=== PATIENT | male | born 1985 | race Caucasian/White ===

== ENCOUNTER 2016-06-09 13:16 | Emergency (ER) | payer MEDICAID ==
--- NOTE | ~2016-06-09 | CR133 ---
[facility] A Service of [facility] RADIOLOGY TEXT RESULTS PATIENT: AUSTIN CASTANEDA LOCATION: BUTCH : 84 UNIT #: [id number] AGE: [address]: Dario Zepeda MD SEX: M ORDER DR: [id number] [facility]. [place], [place] [address] [id number] MR#: [id number] Acc #: [id number] NAME: AUSTIN CASTANEDA : 1985 SEX: M STUDY DATE/TIME: 06/09/2016 13:09 UNIT: BUTCH ROOM: STUDY DESCRIPTION: CR Forearm 2 View Rt Attending Physician: Dario Zepeda M.D. Ordering Physician: Dario Zepeda M.D. Primary Care Physician: Della Man M.D. MEDICAL IMAGING REPORT This report is preliminary unless electronic signature is present EXAM Right forearm. DATE OF EXAM 06/09/2016 HISTORY 30-year-old male with history of IV drug abuse presenting with right arm pain and apparent soft tissue abscess near the elbow. TECHNIQUE 2 view right forearm series. FINDINGS Exam shows focal soft tissue swelling along the anterior aspect of the proximal forearm near the elbow. No visible soft tissue gas or radiopaque soft tissue foreign body. No acute or chronic osseous abnormality. IMPRESSION Soft tissue swelling of the proximal anterior forearm. Right forearm series otherwise negative. Dictated by... Dandre Hansen M.D. THIS IS AN ELECTRONICALLY VERIFIED REPORT Dandre Hansen M.D. at 06/10/2016 5:55 AM DIOGO/jeffrey TD: 06/09/2016 15:33 [facility] A Service of [facility] RADIOLOGY TEXT RESULTS PATIENT: AUSTIN CASTANEDA LOCATION: [facility] : 84 UNIT #: [id number] AGE: [address]: Dario Zepeda MD SEX: M ORDER DR: JOB #: [id number] MEDICAL IMAGING REPORT COPY
[~2016-06-09 13:16] MED LIST: HEROIN IVP
== END 2016-06-09 16:23 | disposition home or self-care (01) ==
LOC: CED 13:16
DX: F19.10 Other psychoactive substance abuse, uncomplicated (principal); L02.413 Cutaneous abscess of right upper limb; F17.210 Nicotine dependence, cigarettes, uncomplicated
CPT/HCPCS: 10060; 73090; 99283

== ENCOUNTER 2016-10-07 18:42 | Emergency (ER) | payer MEDICAID ==
[2016-10-07 19:23] LABS: BASOPHIL% 0.5 % (0-2.5); EOSINOPHIL% 0.3 % (0.0-7.0); HEMATOCRIT 43.6 % (38.0-50.0); HEMOGLOBIN 14.4 gm/dL (13.0-16.0); LYMPHOCYTE# 2.1 X10e3 (1.0-3.5); LYMPHOCYTE% 27.4 % (17.0-45.0); MEAN CELL VOLUME 84.8 FL (83-96); MEAN CORPUSCULAR HEMOGLOBIN 28.1 PG (28-34); MEAN CORPUSCULAR HGB CONC 33.1 g/dL (30-36); MEAN PLATELET VOLUME 8.8 FL (6.5-11.5); MONOCYTE# 0.7 X10e3 (0-1.0); MONOCYTE% 8.4 % (3.0-12.0); NEUTROPHIL# 4.9 X10e3 (1.5-7.1); NEUTROPHIL% 63.4 % (40-75); PLATELET COUNT 216 X10e3 (140-420); RED BLOOD COUNT 5.14 X10e (3.90-5.60); WHITE BLOOD COUNT 7.7 X10e3 (4.0-10.5)
[2016-10-07 19:25] LABS: DIFF IND NO
[2016-10-07 19:46] LABS: ALBUMIN SERUM 4.6 g/dL (3.5-5.0); BILIRUBIN, DIRECT 0.1 mg/dL (0.0-0.2); BILIRUBIN,INDIRECT 0.5 mg/dL (0.0-0.9); BILIRUBIN,TOTAL 0.6 mg/dL (0.2-2.0); CALCIUM SERUM 9.4 mg/dL (8.4-10.2); CREATININE SERUM 1.1 mg/dL (0.6-1.4); GLOM FILT RATE Estimated 88.4 mL/min (>60); POTASSIUM 3.5 mmol/L (3.5-5.1); PROTEIN TOTAL SERUM 8.4 g/dL (6.0-8.3)
== END 2016-10-07 21:04 | disposition home or self-care (01) ==
LOC: CED 18:42
PROVIDERS: Emergency Medicine
DX: G40.509 Epileptic seizures related to external causes, not intractable, without status epilepticus (principal); F15.10 Other stimulant abuse, uncomplicated; F17.200 Nicotine dependence, unspecified, uncomplicated; Z88.1 Allergy status to other antibiotic agents
CPT/HCPCS: 36415; 80048; 80076; 82550; 82947; 85025; 96360; 99284

== ENCOUNTER 2016-11-13 11:05 | Inpatient (IN) | payer MEDICAID ==
[~2016-11-13] VITALS: Ht 190.5 cm; Wt 90.4 kg
--- NOTE | ~2016-11-13 | DS ---
Unit #: [id number] #: [id number] Patient: AUSTIN CASTANEDA [id number] [address] [place], [place] [address] [id number] I MR#: [id number] NAME: AUSTIN CASTANEDA ROOM: 316 Age: 31 Sex: M Admission Date: 11/13/2016 : 1985 Discharge Date: Attending Physician: Austyn Andujar M.D. Primary Care Physician: No Primary Care Physician DISCHARGE SUMMARY REASON FOR ADMISSION Overdose. HISTORY OF PRESENT ILLNESS/HOSPITAL COURSE The patient is a 31-year-old male with underlying history of polysubstance abuse, who presented secondary to overdose. Please see history and physical for complete details. Apparently he was using heroin as well as methamphetamines at home. Initially he was noted to be acutely hypoxic. Right lower lobe infiltrate was noted on initial chest x-ray, likely aspiration. He was given Narcan in the emergency room and placed on Zosyn. He was subsequently admitted and placed on telemetry floor. Initial urine tox screen positive for opiates as well as amphetamines. He underwent routine laboratory studies as well as blood cultures, which have been negative at 24 hours. His HIV screen was negative. Chest x-ray did reveal findings as detailed above. At the present time he is alert and oriented times three. He is currently breathing on room air with no difficulty. He adamantly denies any suicidal ideations. He was offered opioid help in regard to addiction at [facility], which he refused. He said that he would be able to stop heroin on his own and did not require the help of anyone at the present time. He will be discharged home to the care of his mother. He states that he will stay with his mother for the next several days. FINAL DISCHARGE DIAGNOSES 1. Heroin overdose. 2. Likely aspiration pneumonia. 3. Acute hypoxic respiratory failure on admission, now resolved. 4. Heroin/methamphetamine abuse. 5. Tobacco abuse. 6. Poor insight into disease process. FINAL DISCHARGE MEDICATIONS 1. Augmentin 875 mg p.o. b.i.d. times 7 days. 2. Multivitamin daily. DISCHARGE CONDITION Stable. DISPOSITION Home. Unit #: [id number] #: [id number] Patient: AUSTIN CASTANEDA LONG-TERM PROGNOSIS Poor. Chance of readmission of this patient elevated. This patient lacks insight into his disease process. His life expectancy is likely less than six months. Dictated by... Karen Rivera/yanira TD: 11/15/2016 09:48 JOB #: [id number] DISCHARGE SUMMARY Page 1 of 1 X Austyn Andujar MD X DISCHARGE SUMMARY
--- NOTE | ~2016-11-13 | HP ---
Unit #: [id number] #: [id number] Patient: AUSTIN CASTANEDA [id number] [address] [address] [id number] I MR#: [id number] NAME: AUSTIN CASTANEDA ROOM: 316 Age: 31 Sex: M Admission Date: 11/13/2016 : 1985 Attending Physician: Shira Pink M.D. HISTORY AND PHYSICAL CHIEF COMPLAINT Overdose. HISTORY OF PRESENT ILLNESS The patient is a 31-year-old male with a past medical history of polysubstance abuse who presented to the emergency department for evaluation of the above. The history is obtained from chart review and discussion with ER staff, as well as from the patient. He is currently a poor historian. Apparently, the patient was using heroin, as well as possibly methamphetamine. He denied any suicidal or homicidal ideations. During the course of his evaluation in the emergency department, oxygen saturation dropped to 85% on six liters. He was placed on a nonrebreather. Chest x-ray shows a possible right upper lobe infiltrate. He was given Zosyn in the emergency department, as well as 2 mg of Narcan. He is being admitted to [facility] for evaluation and further treatment. PAST MEDICAL HISTORY Polysubstance abuse including methamphetamine and heroin. PAST SURGICAL HISTORY None. SOCIAL HISTORY The patient is a smoker. He uses methamphetamine and heroin. FAMILY HISTORY Noncontributory. ALLERGIES Erythromycin. HOME MEDICATIONS None. REVIEW OF SYSTEMS A complete review of systems is negative except as indicated in the History of Present Illness. PHYSICAL EXAMINATION VITAL SIGNS: Temperature is 98.7, pulse 93, respirations 16, blood pressure 122/84, and oxygen saturation 93% on room air. However, oxygen saturation did drop to 85% on 6 liters. The patient was placed on a Unit #: [id number] #: [id number] Patient: AUSTIN CASTANEDA nonrebreather. He is currently saturating 97% on room air. GENERAL: Patient is a male who is sleeping but wakes to physical stimuli. HEENT: Head is atraumatic. Mucous membranes are dry. NECK: Supple. Trachea is midline. CARDIOVASCULAR: Regular rate and rhythm. LUNGS: Clear to auscultation bilaterally with no increased work of breathing. ABDOMEN: Soft and nontender with bowel sounds present in all four quadrants. EXTREMITIES: Nontender with no pedal edema. NEUROLOGIC: Patient is sleeping but wakes to voice. He is oriented x3. He follows commands. PSYCHIATRIC: Patient demonstrates poor insight and judgment. SKIN: Scattered tattoos. DIAGNOSTIC STUDIES LABORATORY: Comprehensive metabolic panel notable for BUN and creatinine of 25 and 1, respectively, and AST and ALT are 43 and 44, respectively. Tylenol, salicylate, and alcohol levels are negative. BNP is 5. Complete blood count is essentially normal. IMAGING: Chest x-ray shows possible early right upper lobe infiltrate. ASSESSMENT The patient is a 31-year-old male with: 1. Acute respiratory failure, hypoxic. 2. Pneumonia concerning for possible aspiration. The patient received Zosyn in the emergency department. 3. Heroin overdose, accidental. 4. Transaminitis. 5. Tobacco abuse. PLAN 1. Admit to intermediate level. 2. Regular diet when awake and passes bedside swallow. 3. Normal saline at 125 mL/hour. 4. Supplemental oxygen for saturations greater than 92%. 5. P.r.n. DuoNebs. 6. Blood cultures x2. 7. Sputum culture and sensitivity. 8. Zosyn 3.375 grams IV q.6 hours for possible aspiration pneumonia. 9. Check procalcitonin level. 10. Repeat chest x-ray in the a.m. 11. Neuro checks. 12. Urinalysis with culture and sensitivity. 13. Urine toxicology screen. 14. HIV and hepatitis panel. 15. business unit manager/social work consult regarding IV drug use. 16. Repeat labs in the morning. 17. SCDs for DVT prophylaxis. 18. Additional workup and consultants based on above. 1. Dictated by Shira Pink M.D. AW/am Unit #: [id number] #: [id number] Patient: AUSTIN CASTANEDA TD: 11/13/2016 17:10 JOB #: [id number] HISTORY AND PHYSICAL Page 1 of 1 X Shira Pink MD X HISTORY AND PHYSICAL
--- NOTE | ~2016-11-13 | CR72 ---
[facility] A Service of [facility] RADIOLOGY TEXT RESULTS PATIENT: AUSTIN CASTANEDA LOCATION: [facility]ED[facility] : 84 UNIT #: [id number] AGE: [address]: Sihra Pink MD SEX: M ORDER DR: [id number] [facility] [address] [facility]. [place], [place] [address] [id number] E MR#: [id number] Acc #: [id number] NAME: AUSTIN CASTANEDA : 1985 SEX: M STUDY DATE/TIME: 11/13/2016 11:40 UNIT: BUTCH ROOM: STUDY DESCRIPTION: CR Chest Single View Portable Attending Physician: Mike Barreto D.O. Ordering Physician: Mike Barreto D.O. Primary Care Physician: No Primary Care Physician MEDICAL IMAGING REPORT This report is preliminary unless electronic signature is present EXAM Portable chest, 11/13/2016, 1140 hours, [facility]. HISTORY 31-year-old male, heroin overdose, short of air. Symptoms began today. Short of breath. COMPARISON Chest none. FINDINGS AP portable chest demonstrates normal cardiac size and configuration. Hilar structures are preserved. Faint density projects over the right upper lobe. Early lobar edema is not excluded. Lungs appear otherwise clear. Costophrenic angles are preserved. Short-interval followup recommended. IMPRESSION Early or low-grade lumbar edema right upper lobe suspect. Recommend short-interval followup. Dictated by... Josafat Emery M.D. THIS IS AN ELECTRONICALLY VERIFIED REPORT Josafat Emery M.D. at 11/13/2016 3:40 PM RAKAN/hetal TD: 11/13/2016 14:44 JOB #: [id number] [facility] A Service of [facility] RADIOLOGY TEXT RESULTS PATIENT: AUSTIN CASTANEDA LOCATION: CEDOF : 84 UNIT #: [id number] AGE: [address]: Shira Pink MD SEX: M ORDER DR: MEDICAL IMAGING REPORT Page 1 of 1 COPY
--- NOTE | ~2016-11-13 | CR63 ---
[facility] A Service of [facility] RADIOLOGY TEXT RESULTS PATIENT: AUSTIN CASTANEDA LOCATION: A 316-01 : [birth year] UNIT #: [id number] AGE: [address]: Luis Angel Rayo MD SEX: M ORDER DR: [id number] [facility] [address] [facility]. [place], [place] [address] [id number] I MR#: [id number] Acc #: [id number] NAME: AUSTIN CASTANEDA : 1985 SEX: M STUDY DATE/TIME: 11/14/2016 12:25 UNIT: A U ROOM: [facility] STUDY DESCRIPTION: CR Chest 2 View Attending Physician: Luis Angel Rayo M.D. Ordering Physician: Shira Pink M.D. MEDICAL IMAGING REPORT This report is preliminary unless electronic signature is present EXAM Chest x-ray 11/14 INDICATIONS Shortness of air for 1 day. Heroin overdose. TECHNIQUE PA and views of the chest. COMPARISON STUDIES 11/13/2016. FINDINGS Cardiac and mediastinal contours are normal. There is right lower lobe atelectasis or infiltrate. Lungs otherwise clear. No pneumothorax. IMPRESSION Right lower lobe atelectasis or infiltrate. Otherwise, negative. Dictated by... Robert Guzman Jr., M.D. THIS IS AN ELECTRONICALLY VERIFIED REPORT Robert Guzman Jr., M.D. at 11/15/2016 7:16 AM RLK/galindo TD: 11/14/2016 17:12 JOB #: [id number] MEDICAL IMAGING REPORT Page 1 of 1 COPY
[2016-11-13 12:45] LABS: ALKALINE PHOSPHATASE 50 U/L (32-92); ALT (SGPT) 44 U/L (10-40); AST (SGOT) 43 U/L (10-42); BILIRUBIN, DIRECT 0.1 mg/dL (0.0-0.2); BILIRUBIN,INDIRECT 0.2 mg/dL (0.0-0.9); BILIRUBIN,TOTAL 0.3 mg/dL (0.2-2.0); BLOOD UREA NITROGEN 25 mg/dL (9-23); CALCIUM SERUM 8.9 mg/dL (8.4-10.2); CARBON DIOXIDE 29 mmol/L (22-31); CHLORIDE 106 mmol/L (100-111); GLOM FILT RATE Estimated 99.2 mL/min (>60); GLUCOSE FASTING 93 mg/dL (70-110); POTASSIUM 3.6 mmol/L (3.5-5.1); PROTEIN TOTAL SERUM 7.4 g/dL (6.0-8.3); SALICYLATE <4.0 mg/dL; SODIUM 141 mmol/L (135-145)
[2016-11-13 12:46] LABS: ACETAMINOPHEN <10 ug/mL; ALCOHOL BLOOD <5 mg/dL (0)
[2016-11-13 13:40] LABS: BASOPHIL% 0.2 % (0-2.5); EOSINOPHIL# 0.1 X10e3 (0-0.7); EOSINOPHIL% 1.2 % (0.0-7.0); HEMATOCRIT 43.8 % (38.0-50.0); LYMPHOCYTE# 0.8 X10e3 (1.0-3.5); LYMPHOCYTE% 12.2 % (17.0-45.0); MEAN CELL VOLUME 84.6 FL (83-96); MEAN CORPUSCULAR HEMOGLOBIN 28.9 PG (28-34); MEAN CORPUSCULAR HGB CONC 34.2 g/dL (30-36); MEAN PLATELET VOLUME 8.3 FL (6.5-11.5); MONOCYTE# 0.2 X10e3 (0-1.0); MONOCYTE% 2.6 % (3.0-12.0); NEUTROPHIL# 5.4 X10e3 (1.5-7.1); NEUTROPHIL% 83.8 % (40-75); PLATELET COUNT 229 X10e3 (140-420); RED BLOOD COUNT 5.18 X10e (3.90-5.60); RED CELL DISTRIBUTION WIDTH 14.3 % (11.0-15.5); WHITE BLOOD COUNT 6.5 X10e3 (4.0-10.5)
[2016-11-13 13:48] LABS: DIFF IND NO
[2016-11-13] MEDS ORDERED: NO MEDICATIONS (14:53)
[2016-11-13 23:01] LABS: AMPHETAMINE POS (NEG); BARBITURATES NEG (NEG); BENZODIAZEPINES NEG (NEG); COCAINE NEG (NEG); MARIJUANA NEG (NEG); OPIATES POS (NEG); TRICYCLIC ANTIDEPRESSANTS NEG (NEG); U METHADONE NEG (NEG)
[2016-11-13 23:22] LABS: URINE APPEARANCE CLEAR; URINE BILIRUBIN NEG (NEG); URINE BLOOD NEG (NEG); URINE COLOR YELLOW; URINE GLUCOSE NEG (NEG); URINE KETONE NEG (NEG); URINE LEUKOCYTE ESTERASE NEG (NEG); URINE NITRATE NEG (NEG); URINE PROTEIN TRACE (NEG); URINE SPECIFIC GRAVITY 1.031 (1.003-1.035); URINE UROBILINOGEN 0.2 MG/DL (NEG)
[2016-11-13 23:29] LABS: CULTURE INDICATED? NO
[2016-11-14 05:27] LABS: MEAN CELL VOLUME 84.5 FL (83-96); MEAN CORPUSCULAR HEMOGLOBIN 28.3 PG (28-34); MEAN CORPUSCULAR HGB CONC 33.5 g/dL (30-36); MEAN PLATELET VOLUME 8.8 FL (6.5-11.5); RED BLOOD COUNT 4.61 X10e (3.90-5.60); RED CELL DISTRIBUTION WIDTH 14.2 % (11.0-15.5)
[2016-11-14 05:28] LABS: WHITE BLOOD COUNT 15.4 X10e3 (4.0-10.5)
[2016-11-14 06:21] LABS: ALBUMIN SERUM 3.1 g/dL (3.5-5.0); BILIRUBIN,TOTAL 0.4 mg/dL (0.2-2.0); BUN/CREATININE RATIO 21.11; CALCIUM SERUM 8.3 mg/dL (8.4-10.2); CREATININE SERUM 0.9 mg/dL (0.6-1.4); GLOM FILT RATE Estimated 112.6 mL/min (>60); POTASSIUM 3.8 mmol/L (3.5-5.1); PROTEIN TOTAL SERUM 6.2 g/dL (6.0-8.3)
[2016-11-14 16:13] LABS: HEMATOCRIT 37.3 % (38.0-50.0); HEMOGLOBIN 12.7 gm/dL (13.0-16.0); MEAN CORPUSCULAR HEMOGLOBIN 28.6 PG (28-34); MEAN CORPUSCULAR HGB CONC 34.1 g/dL (30-36); RED BLOOD COUNT 4.44 X10e (3.90-5.60); RED CELL DISTRIBUTION WIDTH 14.6 % (11.0-15.5); WHITE BLOOD COUNT 11.6 X10e3 (4.0-10.5)
[2016-11-15] MEDS ORDERED: MULTI VITAMIN1 EACH PO (11:09)
[2016-11-15] MEDS ORDERED: AUGMENTIN PO (11:10)
[2016-11-19 17:30] LABS: HA AB IGM (HEPPAN) Nonreactive (()); HB CORE AB IGM (HEPPAN) Nonreactive (Nonreactive); HB S AG (HEPPAN) Nonreactive (Nonreactive); HEP C AB (HEPPAN) Reactive (Nonreactive)
== END 2016-11-15 13:09 | disposition home or self-care (01) | DRG 917 ==
LOC: CED 11:05 → CEDOF 14:50 → CED 15:02 → C3A PCU 15:56 → CEDOF 15:56 → C3A PCU 15:56
PROVIDERS: Emergency Medicine; Family Medicine; Internal Medicine
PROC: 02HV33Z Insertion of Infusion Device into Superior Vena Cava, Percutaneous Approach (ICD-10-PCS; principal; 2016-11-14)
PROC: 4A02X4A Measurement of Cardiac Electrical Activity, Guidance, External Approach (ICD-10-PCS; 2016-11-14)
DX: T40.1X1A Poisoning by heroin, accidental (unintentional), initial encounter (principal); J96.01 Acute respiratory failure with hypoxia; J69.0 Pneumonitis due to inhalation of food and vomit; A41.9 Sepsis, unspecified organism; F11.23 Opioid dependence with withdrawal; F15.10 Other stimulant abuse, uncomplicated; F17.210 Nicotine dependence, cigarettes, uncomplicated; R74.0 Nonspecific elevation of levels of transaminase and lactic acid dehydrogenase [LDH]
CPT/HCPCS: 36415; 71010; 71020; 80048; 80053; 80074; 80076; 80307; 81003; 82308; 83605; 83880; 85025; 85027; 86592; 87040; 87070; 87205; 87522; 87806; 94760; 96365; 96375; 99285; G0480; J0885; J1650; J2543; J3370; J3411